=== PATIENT | male | born 1975 | race Caucasian/White ===

== ENCOUNTER 2022-11-26 15:33 | Emergency (ER) | payer OTHER ==
--- OUTSIDE RECORDS SUMMARY | 2022-11-26 15:43 | XMS REPORT | Continuity of Care Document ---
:1975 Author Organization Formerly [facility] Address [address] [place] [id number] Care Team Providers Name Role Phone PCP, PATIENT DOES NOT HAVE A Primary Care Physician Unavaila ble AMBREEN_BRYNA Attending Clinician Unavailable Obgerber_genny Attending Clinician Unavailable IHDE_G Attending Clinician Unavailable GANESH Attending Clinician Unavailable EDU JOHNSON Attending Clinician Unavailable AMBREEN_FARHANA Admitting Clinician Unavailable Obdalyunwanda Admitting Clinician Unavailable IHDE_G Admitting Clinician Unavailable GANESH Admitting Clinician Unavailable EDU JOHNSON Admitting Clinician Unavailable Payers Payer Name Policy Type Policy Number Effective Date Expiration Date S ource Problems Condition Condition Condition Status Onset Resolution Last Treating Co mments Source Name Details Category Date Date Treatment Clinician Date Tobacco Tobacco Problem Active [place] user User 1-25 da 00:00: [facility] Allergies, Adverse Reactions, Alerts Allergy Allergy Status Severity Reaction(s) Onset Inactive Treating Comm ents Source Name Type Date Date Clinician [place] DRUG Active Anaphylaxis Uni vers IN INGREDI 11-01 ity of 00:00: [address] [place] P[place] Allergy Active Moderate [place] to da substanc [facility] NO KNOWN Drug Active Univers ALLERGIE Class ity of [facility] Social History Smoking Status Start Date Stop Date Source Heavy Tobacco Smoker [place] [facility] Medications Ordered Filled Start Stop Current Ordering Indication Dosage Frequency Signature Comments Components Source Medication Medication Date Date Medication? Clinician (SIG) Name Name albuterol albuterol No 2puff(s Q4H albuterol [place] sulfate HFA sulfate HFA ) sulfate da 90 90 HFA 90 [facility] mcg/actuati mcg/actuati mcg/actuat al on aerosol on aerosol ion Hea lth inhaler inhaler aerosol Outrea c Inhale 2 Inhale 2 inhaler h puffs every puffs every Inhale 2 Program 4 hours by 4 hours by puffs inhalation inhalation every 4 route as route as hours by needed. needed. inhalation route as needed. escitalopra escitalopra No 1 Q1D escitalopr [place] m 10 mg m 10 mg am 10 mg da tablet Take tablet Take tablet [facility] 1 tablet 1 tablet Take 1 al every day every day tablet Hea lth by oral by oral every day Outr eac route for route for by oral h 30 days. 30 days. route for Pr ogram 30 days. Spiriva Spiriva No 2puff(s Q1D Spiriva [place] Respimat Respimat ) Respimat da 2.5 2.5 2.5 [facility] mcg/actuati mcg/actuati mcg/actuat al on solution on solution ion H ealth for for solution Outreac inhalation inhalation for h Inhale 2 Inhale 2 inhalation P rogram puffs every puffs every Inhale 2 day by day by puffs inhalation inhalation every day route for route for by 30 days. 30 days. inhalation route for 30 days. Vital Signs Vital Name Observation Time Observation Value Comments Source BP Diastolic 2020-08-15 00:00:00 90 mm[Hg] [facility] Height 2020-08-15 00:00:00 70 [in_i] [facility] BMI (Body Mass 2020-08-15 00:00:00 21.5 kg/m2 Sohail pabon [facility] BP Systolic 2020-08-15 00:00:00 125 mm[Hg] [facility] Body Weight 2020-08-15 00:00:00 2400 [oz_av] [facility] Procedures Procedure Date / Time Performed Performing Clinician Sourc e CHEST X-RAY 2020-08-15 00:00:00 [facility] Vasectomy [facility] Orthopedic Surgery [facility] Plan of Care Planned Activity Planned Date Details Comments Source Diagnostic Test 2020-08-15 hepatitis panel [place] Pending 00:00:00 (A+B+C), acute, serum [facility] [code = hepatitis Outreach P rogram panel (A+B+C), acute, serum] Diagnostic Test 2020-08-15 hepatitis B surface [place] Pending 00:00:00 Ab, qualitative, serum [facility] [code = hepatitis B Outreach Program surface Ab, qualitative, serum] Diagnostic Test 2020-08-15 HIV 1+2 AB + HIV 1 p24 [place] Pending 00:00:00 Ag, qualitative [facility] immunoassay, serum [facility] [code = HIV 1+2 AB + HIV 1 p24 Ag, qualitative immunoassay, serum] Diagnostic Test 2020-08-15 RPR (rapid plasma [place] Pending 00:00:00 reagin), serum [code = [facility] RPR (rapid plasma Outreach P rogram reagin), serum] Diagnostic Test 2020-08-15 CT + NG + TV, DNA, [place] [employer] Pending 00:00:00 urine/swab [code = CT [facility] + NG + TV, DNA, Outreach Pro gram urine/swab] Diagnostic Test 2020-08-15 CMP, serum or plasma Barnes jameel Pending 00:00:00 [code = CMP, serum or [facility] plasma] Outreach Progra m Diagnostic Test 2020-08-15 lipid panel, serum [place] [employer] Pending 00:00:00 [code = lipid panel, [facility] serum] Outreach Progra m Diagnostic Test 2020-08-15 CBC w/ auto diff [code [place] Pending 00:00:00 = CBC w/ auto diff] [facility] Outreach Progra m Diagnostic Test 2020-08-15 TSH + free T4, serum Barnes jameel Pending 00:00:00 [code = TSH + free T4, [facility] serum] Outreach Progra m Diagnostic Test 2020-08-15 HbA1c (hemoglobin [place] Pending 00:00:00 A1c), blood [code = [facility] HbA1c (hemoglobin Outreach P rogram A1c), blood] Diagnostic Test 2020-08-15 vitamin D, 25-hydroxy, [place] Pending 00:00:00 total, serum [code = [facility] vitamin D, 25-hydroxy, [facility] total, serum] Diagnostic Test 2020-08-15 rf (rheumatoid [place] Pending 00:00:00 factor), serum [code = [facility] rf (rheumatoid Outreach Prog wes factor), serum] Diagnostic Test 2020-08-15 JOSE CARLOS (antinuclear [place] Pending 00:00:00 antibodies) screen, [facility] serum [code = JOSE CARLOS Outreach P rogram (antinuclear antibodies) screen, serum] Diagnostic Test 2020-08-15 erythrocyte [place] Pending 00:00:00 sedimentation rate by [facility] westergren method Outreach P rogram [code = erythrocyte sedimentation rate by westergren method] Diagnostic Test 2020-08-15 uric acid, serum or [place] Pending 00:00:00 plasma [code = uric [facility] acid, serum or plasma] [facility] Diagnostic Test 2020-08-15 microalbumin/creatinin [place] Pending 00:00:00 e, mass ratio, urine [facility] [code = Outreach Progra m microalbumin/creatinin e, mass ratio, urine] Encounters Start End Encounter Admission Attending Care Care Encounter Source Date/Time Date/Time Type Type Clinicians Facility Department ID 2022-11-15 2022-11-15 Outpatient AMBREEN_NEGRITA [facility] [id number] [place] 00:00:00 00:00:00 SOFÍA [id number] da [facility] 2020-08-29 2020-08-29 Outpatient Obisesan_ad [facility] [id number] [place] 11:42:00 11:42:00 ekunbi [id number] da [facility] 2020-08-19 2020-08-19 Outpatient IHDE_G MMG MMG [id number] [place] 12:41:00 12:41:00 [id number] [facility] 2020-08-15 2020-08-15 Outpatient SHIMEK_REGULO [facility] [id number] [place] 06:15:00 06:15:00 _ANN [id number] da [facility] 2020-08-15 2020-08-15 Adekunwanda [facility] [place] - [id number] [place] 00:00:00 00:00:00 Trever Morales da SENIOR 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 Program 2020-08-12 2020-08-12 Outpatient KEMAR_REGULO ESQUIVEL [facility] 110 [id number] [place] 07:10:00 07:10:00 _ANN [id number] [facility] 2020-08-09 2020-08-09 Outpatient SHIMEK_REGULO ESQUIVEL [facility] 110 [id number] [place] 01:06:00 01:06:00 _ANN [id number] [facility] 2020-04-12 2020-04-12 Outpatient SHIMEK_REGULO ESQUIVEL [facility] 110 [id number] [place] 10:43:00 10:43:00 _ANN [id number] da [facility] 2019-11-02 2019-11-03 Emergency X ALEX, [facility] ERT [id number] Univers 22:00:50 00:22:00 [facility] 2017-04-05 2017-04-05 [facility] [id number] [place] 12:35:59 12:35:59 [facility] Office 2017-01-10 2017-04-05 Outpatient [facility] [id number] [address] [place] [address] 00:00:00 00:00:00 [facility] Office Results This patient has no known results.
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
[2022-11-26 18:55] VITALS: BP 129/88; TEMP 97.7; O2SAT 100
== END 2022-11-26 18:43 | disposition left against medical advice (07) ==
LOC: ER 15:33
DX: M54.2 Cervicalgia (principal); M25.511 Pain in right shoulder; F17.210 Nicotine dependence, cigarettes, uncomplicated; Z88.0 Allergy status to penicillin
CPT/HCPCS: 99282

== ENCOUNTER 2023-03-15 12:39 | Emergency (ER) | payer OTHER ==
--- OUTSIDE RECORDS SUMMARY | 2023-03-15 13:37 | XMS REPORT | Continuity of Care Document ---
:1975 Author Organization [facility] t Address [address] [place] [address] [place] [id number] Care Team Providers Name Role Phone PCP, PATIENT DOES NOT HAVE A Primary Care Physician UnavailJENNIFER Roberts Attending Clinician Unavailable L_Max Attending Clinician Unavailable PAT NICHOLE Attending Clinician Unavailable Pat Nichole MD Attending Clinician VICKY Attending Clinician Unavailable Apurva Attending Clinician Unavailable MAGDI_Martina Attending Clinician Unavailable GANESH Attending Clinician Unavailable EDU JOHNSON Attending Clinician Unavailable Jocy Admitting Clinician Unavailable PAT NICHOLE Admitting Clinician Unavailable VICKY Admitting Clinician Unavailable Apurva Admitting Clinician Unavailable SCARLETT Admitting Clinician Unavailable GANESH Admitting Clinician Unavailable EDU JOHNSON Admitting Clinician Unavailable Payers Payer Name Policy Type Policy Number Effective Date Expiration Date S roger [employer]ET[employer] 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 9 [id number] 2022 2: 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 00:00:00 ON AETNA (HMO) [id number] 2022 00:00:00 [employer] COMMERCIAL [id number] 2022 OUT OF NETWORK 00:00:00 Problems Condition Condition Condition Status Onset Resolution Last Treating Co mments Source Name Details Category Date Date Treatment Clinician Date Tobacco Tobacco Problem Active [place] user User 1-25 da [facility] Allergies, Adverse Reactions, Alerts Allergy Allergy Status Severity Reaction(s) Onset Inactive Treating Comm ents Source Name Type Date Date Clinician Penicill Propensi Active Anaphylaxis 2019- U nivers in ty to -13 ity of adverse 00:00: [place] reaction 00 Medical s Branch PENICILL DRUG Active Anaphylaxis Uni vers IN INGREDI 11-01 ity of 00:00: [place] 00 Medical Branch PENICILL Allergy Active Moderate [place] to da substanc [facility] NO KNOWN Drug Active Univers ALLERGIE Class [facility] Social History Social Habit Start Date Stop Date Quantity Comments Source Exposure to 2022-11-23 2022-12-03 Not sure [facility] SARS-CoV-2 (event) 00:00:00 23:12:00 Medica Branch Sex Ass[birth year] [facility] 00:00:00 00:00:00 Medical Branch Smoking Status Start Date Stop Date Source Heavy Tobacco Smoker [facility] Tobacco smoking consumption [facility] Medical unknown Branch Medications Ordered Filled Start Stop Current Ordering Indication Dosage Frequency Signature Comments Components Source Medication Medication Date Date Medication? Clinician (SIG) Name Name ketorolac 2022- No 60mg 60 mg, Unive rs (TORADOL) 12-04 Intramuscu ity of injection 05:15: 04:36 [place] 60 mg 00 :00 NOW, 1 Medical dose, On Branch 12/04/22 at 0015, YOLY gabapentin 2022- No 300mg 300 mg, Un chris (NEURONTIN) 12-04 Oral, ity of capsule 300 04:30: 04:36 ONCE[place] 1 [place] mg [place] :00 dose, On Medical Mon Branch 12/03/22 at 2330, YOLY dexamethaso 2022- No 10mg 10 mg, Uni vers ne sod phos 12-04 Intramuscu i ty of PF 04:30: 04:36 lar, ONCE, [place] injection 00 :00 1 dose, On Medi kirsty 10 mg [facility] Branch 12/03/22 at 2330, 1 mL ketorolac Yes [id number] 10mg Take 1 Un chris 10 mg 5-15 tablet by ity of tablet 00:00: mouth [place] 00 every 6 Medical (six) Branch hours as needed for Pain (scale 4-6) or Pain (scale 7-10). acetaminoph Yes [id number] 650mg Take 1 Univers en (TYLENOL 5-15 tablet by ity of ARTHRITIS 00:00: mouth [place] PAIN) 650 00 every 8 Medical mg CR (eight) Branch tablet hours as needed for Pain. gabapentin Yes [id number] 100mg Take 1 Univers (NEURONTIN) 5-15 capsule by it y of 100 mg 00:00: mouth in [place] capsule 00 the Medical morning Branch and 1 capsule at noon and 1 capsule in the evening. predniSONE Yes [id number] Take 2 U nivers 20 mg 5-15 tablets PO ity of tablet 00:00: daily [place] 00 Medical Branch ondansetron Yes [id number] 4mg Take 1 Univers 4 mg 4-13 tablet by ity of disintegrat 00:00: mouth [place] ing tablet 00 every 8 Medica l (eight) Branch hours as needed for Nausea and Vomiting (N/V). albuterol albuterol No 2puff(s Q4H albuterol [place] [...] Name Observation Time Observation Value Comments Source Systolic blood 2022-12-04 04:14:00 141 mm[Hg] Univer [facility] Diastolic blood 2022-12-04 04:14:00 92 mm[Hg] Unive rsity [facility] Heart rate 2022-12-04 04:14:00 96 /min [facility] Body temperature 2022-12-04 04:14:00 37 Luci [facility] Respiratory rate 2022-12-04 04:14:00 18 /min [facility] Body height 2022-12-04 04:14:00 177.8 cm [facility] Body weight 2022-12-04 04:14:00 74.844 kg [facility] BMI 2022-12-04 04:14:00 23.68 kg/m2 [facility] Oxygen saturation in 2022-12-04 04:14:00 100 /min [facility] Arterial blood by [facility] Pulse oximetry Branch BP Diastolic 2020-08-15 00:00:00 90 mm[Hg] [place] [facility] Height 2020-08-15 00:00:00 70 [in_i] [place] [facility] BMI (Body Mass 2020-08-15 00:00:00 21.5 kg/m2 [facility] shipfitter helper Index) [facility] BP Systolic 2020-08-15 00:00:00 125 mm[Hg] [place] [facility] Body Weight 2020-08-15 00:00:00 2400 [oz_av] [place] [facility] Procedures Procedure Date / Time Performed Performing Clinician [facility] e NOTICE OF PRIVACY 2022-12-04 04:04:11 Doctor Unassigned, No Univ [facility] PRACTICES Name Medical Branch CONSENT/REFUSAL FOR 2022-12-04 04:02:48 Doctor Unassigned, No Un [facility] DIAGNOSIS AND Name Medical Branch TREATMENT CHEST X-RAY 2020-08-15 00:00:00 [facility] Vasectomy Terry [facility] Orthopedic Surgery Terry [facility] Plan of Care Planned Activity Planned Date Details Comments Source Diagnostic Test 2020-08-15 hepatitis panel [place] Pending 00:00:00 (A+B+C), acute, serum [facility] [code = hepatitis Outreach P rogram panel (A+B+C), acute, serum] Diagnostic Test 2020-08-15 hepatitis B surface [place] Pending 00:00:00 Ab, qualitative, serum [facility] [code = hepatitis B Outreach Program surface Ab, qualitative, serum] Diagnostic Test 2020-08-15 HIV 1+2 AB + HIV 1 p24 Ma taglillianaa Pending 00:00:00 Ag, qualitative [facility] immunoassay, serum Outreach Program [code = HIV 1+2 AB + HIV 1 p24 Ag, qualitative immunoassay, serum] Diagnostic Test 2020-08-15 RPR (rapid plasma [place] Pending 00:00:00 reagin), serum [code = [facility] RPR (rapid plasma Outreach P rogram reagin), serum] Diagnostic Test 2020-08-15 CT + NG + TV, DNA, [place] shipfitter helper Pending 00:00:00 urine/swab [code = CT [facility] Health + NG + TV, DNA, Outreach Pro gram urine/swab] Diagnostic Test 2020-08-15 CMP, serum or plasma Barnes jameel Pending 00:00:00 [code = C[facility], [facility] plasma] Outreach Progra m Diagnostic Test 2020-08-15 lipid panel, serum [place] shipfitter helper Pending 00:00:00 [code = lipid panel, [facility] serum] Outreach Progra m Diagnostic Test 2020-08-15 CBC w/ auto diff [code [place] Pending 00:00:00 = CBC w/ auto diff] [facility] Outreach Progra m Diagnostic Test 2020-08-15 TSH + free T4, serum [place] jameel Pending 00:00:00 [code = TSH + free T4, [facility] serum] Outreach Progra m Diagnostic Test 2020-08-15 HbA1c (hemoglobin [place] Pending 00:00:00 A1c), blood [code = [facility] HbA1c (hemoglobin Outreach P rogram A1c), blood] Diagnostic Test 2020-08-15 vitamin D, 25-hydroxy, [place] Pending 00:00:00 total, serum [code = [facility] vitamin D, 25-hydroxy, Outre [facility] total, serum] Diagnostic Test 2020-08-15 rf (rheumatoid Terry Pending 00:00:00 factor), serum [code = [facility] rf (rheumatoid Outreach Prog wes factor), serum] Diagnostic Test 2020-08-15 JOSE CARLOS (antinuclear [place] Pending 00:00:00 antibodies) screen, [facility] serum [code = JOSE CARLOS Outreach P rogram (antinuclear antibodies) screen, serum] Diagnostic Test 2020-08-15 erythrocyte Terry Pending 00:00:00 sedimentation rate by [facility] westergren method Outreach P rogram [code = erythrocyte sedimentation rate by westergren method] Diagnostic Test 2020-08-15 uric acid, serum or [place] Pending 00:00:00 plasma [code = uric [facility] acid, serum or plasma] [facility] Diagnostic Test 2020-08-15 microalbumin/creatinin [place] Pending 00:00:00 e, mass ratio, urine [facility] [code = Outreach Progra m microalbumin/creatinin e, mass ratio, urine] Encounters Start End Encounter Admission Attending Care Care Encounter Source Date/Time Date/Time Type Type Clinicians Facility Department ID 2023-01-01 2023-01-01 Outpatient KAMALA CARUSO [id number] [place] 14:30:00 14:30:00 JENNIFER mosquera 2022-12-11 2022-12-11 Outpatient L_Pena [facility] [id number] [place] 00:00:00 00:00:00 0523 [facility] 2022-12-03 2022-12-04 Emergency X DIONISIO, [facility] ERT [id number] Univers 23:17:00 01:01:00 PAT [facility] 2022-12-03 2022-12-04 Emergency Dionisio, [facility] [id number] Univers 23:17:00 01:01:00 Pat HALE [id number] i lidya [facility] [id number] [facility] [id number] [facility] 084 Branch 2022-11-15 2022-11-15 Outpatient AMBREEN_NEGRITA MEHOP MEHOP [id number] [place] 00:00:00 00:00:00 SOFÍA [id number] da [facility] 2020-08-29 2020-08-29 Outpatient Obisesan_ad MEHOP MEHOP 110 [id number] [place] 11:42:00 11:42:00 ernie [id number] [facility] 2020-08-19 2020-08-19 Outpatient IHDE_G MMG MMG [id number] [place] 12:41:00 12:41:00 [id number] [facility] 2020-08-15 2020-08-15 Outpatient SHIMEK_REGULO MEHOP MEHOP 110 [id number] [place] 06:15:00 06:15:00 _ANN [id number] da [facility] 2020-08-15 2020-08-15 Adekunwanda [facility] [place] - [id number] [place] 00:00:00 00:00:00 Trever Morales da 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 Program 2020-08-12 2020-08-12 Outpatient SHIMEK_REGULO MEHOP MEHOP [id number] [place] 07:10:00 07:10:00 _ANN [id number] [facility] 2020-08-09 2020-08-09 Outpatient SHIMEK_REGULO MEHOP MEHOP 110 [id number] [place] 01:06:00 01:06:00 _ANN [id number] [facility] 2020-04-12 2020-04-12 Outpatient SHIMEK_REGULO MEHOP MEHOP 110 [id number] [place] 10:43:00 10:43:00 _ANN [id number] da [facility] 2019-11-02 2019-11-03 Emergency X ALEX, [facility] ERT [id number] [facility] 22:00:50 00:22:00 EDU [facility] 2017-04-05 2017-04-05 Outpatient [facility] [id number] [place] 12:35:59 12:35:59 [facility] 2017-01-10 2017-04-05 Outpatient [facility] [id number] [address] [place] [address] 00:00:00 00:00:00 [facility] Results This patient has no known results.
--- NOTE | 2023-03-15 14:49 | EDPHYS ---
Physician Documentation [facility] Name: Prieto Baugh Age: 48 yrs Sex: Male : 1975 Arrival Date: 03/15/2023 Time: 12:39 Bed 12 Private MD: ED Physician Scotty Martínez HPI: 03/15 14:46 This 48 yrs old Male presents to ER via Ambulatory with complaints of Hernia. rn 14:46 The patient presents with abdominal pain. rn 14:46 . rn Historical: - Allergies: 12:45 PENICILLINS; hb - Home Meds: 12:45 None [Active]; hb - PMHx: 12:45 Hypertensio; Hepatitis C; hb - PSHx: 12:45 Arm - Left; hb - Immunization history:: Adult Immunizations up to date. - Social history:: Smoking status: Patient reports the use of cigarette tobacco products, smokes one-half pack cigarettes per day. Vital Signs: 12:44 BP 134 / 93; Pulse 97; Resp 18; Temp 98.6; Pulse Ox 100% ; Weight 70.31 kg; Height 5 hb ft. 10 in. ; Pain 7/10; 12:44 Body Mass Index 22.24 (70.31 kg, 177.8 cm) hb 12:44 Pain Scale: Adult hb MDM: 12:47 Patient medically screened. rn 13:29 ED course: Pt went upstairs "to get something", has not returned. . rn 14:46 Differential diagnosis: non-specific abd pain, Ureterolithiasis, urinary tract rn infection, hernia, hernia with complication. Data reviewed: vital signs, nurses notes. ED course: Pt left upstairs prior to physical examination, has been called on cell phone, told us he would return, has not returned, will discharge as has been gone for more than 2 hours now. . 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 rn rn 15: 14:46 Onset: The symptoms/episode began/occurred 1 year(s) ago, rn rn 15: 14:46 Pt reports left inguinal pain for atleast 1 year, worse recently. NO fever. No rn vomiting. . rn 15: 14:48 Home rn rn 15: 14:48 an ongoing problem rn rn 15: 14:48 are unchanged rn rn 15: 14:48 Stable rn rn 15: 14:48 Inguinal hernia, unspecified rn rn
--- NOTE | 2023-03-15 14:49 | ER ---
Nurse's Notes [facility] Name: Prieto Baugh Age: 48 yrs Sex: Male : 1975 Arrival Date: 03/15/2023 Time: 12:39 Bed 12 Private MD: Diagnosis: Inguinal hernia Presentation: 03/15 12:44 Chief complaint: Left groin hernia x 1 year, getting bigger and painful over last 3 hb days. Coronavirus screen: At this time, the client does not indicate any symptoms associated with coronavirus-19. Ebola Screen: No symptoms or risks identified at this time. Initial Sepsis Screen: Does the patient meet any 2 criteria? No. Patient's initial sepsis screen is negative. Does the patient have a suspected source of infection? No. Patient's initial sepsis screen is negative. Risk Assessment: Do you want to hurt yourself or someone else? Patient reports no desire to harm self or others. Onset of symptoms was March 13, 2023. 12:44 Method Of Arrival: Ambulatory hb 12:44 Acuity: TIFFANIE 3 hb Historical: - Allergies: 12:45 PENICILLINS; hb - Home Meds: 12:45 None [Active]; hb - PMHx: 12:45 Hypertensio; Hepatitis C; hb - PSHx: 12:45 Arm - Left; hb - Immunization history:: Adult Immunizations up to date. - Social history:: Smoking status: Patient reports the use of cigarette tobacco products, smokes one-half pack cigarettes per day. Vital Signs: 12:44 BP 134 / 93; Pulse 97; Resp 18; Temp 98.6; Pulse Ox 100% ; Weight 70.31 kg; Height 5 hb ft. 10 in. ; Pain 7/10; 12:44 Body Mass Index 22.24 (70.31 kg, 177.8 cm) hb 12:44 Pain Scale: Adult hb ED Course: 12:39 Patient arrived in ED. rg4 12:45 Triage completed. hb 12:46 Arm band placed on. hb 12:47 Scotty Martínez MD is Attending Physician. rn 14:47 Praveen Shin MD is Referral Physician. rn 15:28 Praveen Shin MD is Referral Physician. rn Administered Medications: No medications were administered Outcome: 14:48 Discharge ordered by MD. rn 14:50 Patient left the ED. hb 15:28 Patient left the ED. rn Signatures: Scotty Martínez MD MD rn Baxter, Heather, RN RN hb Garcia, Rubi rg4 Corrections: (The following items were deleted from the chart) 12:46 12:45 PMHx: None; hb hb 15: 14:46 Family history: not pertinent, rn rn 15: 14:46 Hospitalizations: No recent hospitalization is reported. rn rn
[2023-03-15 14:56] VITALS: BP 134/93; TEMP 98.6; O2SAT 100
== END 2023-03-15 15:28 | disposition left against medical advice (07) ==
LOC: ER 12:39
DX: Z53.21 Procedure and treatment not carried out due to patient leaving prior to being seen by health care provider (principal)
CPT/HCPCS: 99281

== ENCOUNTER 2023-03-17 21:47 | Emergency (ER) | payer OTHER ==
--- OUTSIDE RECORDS SUMMARY | 2023-03-17 21:50 | XMS REPORT | Continuity of Care Document ---
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 [id number] 2022 OUT OF NETWORK 00:00:00 Problems Condition [...] Active Univers ALLERGIE Class [facility] [place] [facility] Social History Social Habit Start Date Stop Date Quantity Comments Source Exposure to 2022-11-23 2022-12-03 Not sure [facility] SARS-CoV-2 (event) 00:00:00 23:12:00 Medica Branch Sex Ass[birth year] At [birth year] [facility] 00:00:00 00:00:00 Medical Branch Smoking Status Start Date Stop Date Source Tobacco smoking consumption [facility] Branch Heavy Tobacco Smoker [place] [facility] Medications Ordered Filled Start Stop Current Ordering Indication Dosage Frequency Signature Comments Components Source Medication Medication Date Date Medication? Clinician (SIG) Name Name ketorolac 2022- No 60mg 60 mg, Unive rs (TORADOL) 12-04 Intramuscu ity of injection 05:15: 04:36 [place] 60 [place] 00 :00 NOW, 1 Medical dose, On Branch Tu 12/04/22 at 0015, YOLY gabapentin 2022- No [...] 1 dose, On Medi kirsty 10 mg [facility] 12/03/22 at 2330, 1 mL ketorolac Yes [id number] 10mg Take 1 Un chris 10 mg 5-15 tablet by ity of tablet 00:00: mouth [place] 00 every 6 Medical (six) Branch hours as needed for Pain (scale 4-6) or Pain (scale 7-10). acetaminoph Yes [id number] 650mg Take 1 Univers en (TYLENOL 5-15 tablet by ity of ARTHRITIS 00:00: mouth [place] PAIN) 650 00 every 8 Medical mg CR (eight) Branch tablet hours as needed for Pain. gabapentin Yes [id number] 100mg Take 1 Univers (NEURONTIN) 5-15 capsule by it y of 100 mg 00:00: mouth in [place] capsule 00 the Medical morning Branch and 1 capsule at noon and 1 capsule in the evening. predniSONE Yes [id number] Take 2 U nivers 20 mg 5-15 tablets PO ity of tablet 00:00: daily [place] 00 Medical Branch ondansetron Yes [id number] 4mg Take 1 Univers 4 mg 4-13 [...] 2022-12-04 04:14:00 141 mm[Hg] [facility]iver [facility] Diastolic blood 2022-12-04 04:14:00 92 mm[Hg] Unive rsity [facility] Heart rate 2022-12-04 04:14:00 96 /min [facility] Body temperature 2022-12-04 04:14:00 37 Luci [facility] Respiratory rate 2022-12-04 04:14:00 18 /min [facility] Body height 2022-12-04 04:14:00 177.8 cm [facility] Body weight 2022-12-04 04:14:00 74.844 kg [facility] BMI 2022-12-04 04:14:00 23.68 kg/m2 [facility] Oxygen saturation in 2022-12-04 04:14:00 100 /min [facility] Arterial blood by [facility] Pulse oximetry Branch BP Diastolic 2020-08-15 00:00:00 90 mm[Hg] [place] [facility] Height 2020-08-15 00:00:00 70 [in_i] [place] [facility] BMI (Body Mass 2020-08-15 00:00:00 21.5 kg/m2 [facility] approver Index) [facility] BP Systolic 2020-08-15 00:00:00 125 mm[Hg] [place] [facility] Body Weight 2020-08-15 00:00:00 2400 [oz_av] [place] [facility] Procedures Procedure Date / Time Performed Performing Clinician [facility] e NOTICE OF PRIVACY 2022-12-04 04:04:11 Doctor Unassigned, No Univ [facility] PRACTICES Name Medical Branch CONSENT/REFUSAL FOR 2022-12-04 04:02:48 Doctor Unassigned, No Un [facility] DIAGNOSIS AND Name Medical Branch TREATMENT CHEST X-RAY 2020-08-15 00:00:00 [place] [facility] Vasectomy [place] [facility] Orthopedic Surgery [place] [facility] Plan of Care Planned Activity Planned Date Details Comments Source Diagnostic Test 2020-08-15 hepatitis panel [place] Pending 00:00:00 (A+B+C), acute, serum [facility] [code = hepatitis Outreach P rogram panel (A+B+C), acute, serum] Diagnostic Test 2020-08-15 hepatitis B surface [place] Pending 00:00:00 Ab, qualitative, serum [facility] [code = hepatitis B Outreach Program surface Ab, qualitative, serum] Diagnostic Test 2020-08-15 HIV 1+2 AB + HIV 1 p24 [place] taglillianaa Pending 00:00:00 Ag, qualitative [facility] immunoassay, serum Outreach Program [code = HIV 1+2 AB + HIV 1 p24 Ag, qualitative immunoassay, serum] Diagnostic Test 2020-08-15 RPR (rapid plasma [place] Pending 00:00:00 reagin), serum [code = [facility] RPR (rapid plasma Outreach P rogram reagin), serum] Diagnostic Test 2020-08-15 CT + NG + TV, DNA, [place] approver Pending 00:00:00 urine/swab [code = CT [facility] Health + NG + TV, DNA, Outreach Pro gram urine/swab] Diagnostic Test 2020-08-15 CMP, serum or plasma [place] jameel Pending 00:00:00 [code = CMP, serum or [facility] plasma] Outreach Progra m Diagnostic Test 2020-08-15 lipid panel, serum [place] approver Pending 00:00:00 [code = lipid panel, [facility] serum] Outreach Progra m Diagnostic Test 2020-08-15 CBC w/ auto diff [code [place] Pending 00:00:00 = CBC w/ auto diff] [facility] Outreach Progra m Diagnostic Test 2020-08-15 TSH + free T4, serum [place] jameel Pending 00:00:00 [code = TSH + free T4, [facility] serum] Outreach Progra m Diagnostic Test 2020-08-15 HbA1c (hemoglobin [place] Pending 00:00:00 A1c), blood [code = [facility] HbA1c (hemoglobin Outreach P rogram A1c), blood] Diagnostic Test 2020-08-15 vitamin D, 25-hydroxy, [place] Pending 00:00:00 total, serum [code = [facility] vitamin D, 25-hydroxy, Outre [facility] total, serum] Diagnostic Test 2020-08-15 rf (rheumatoid [place] Pending 00:00:00 factor), serum [code = [facility] rf (rheumatoid Outreach Prog wes factor), serum] Diagnostic Test 2020-08-15 JOSE CARLOS (antinuclear [place] Pending 00:00:00 antibodies) screen, [facility] serum [code = JOSE CARLOS Outreach P rogram (antinuclear antibodies) screen, serum] Diagnostic Test 2020-08-15 erythrocyte [place] Pending 00:00:00 sedimentation rate by [facility] westergren method Outreach P rogram [code = erythrocyte sedimentation rate by westergren method] Diagnostic Test 2020-08-15 uric acid, serum or [place] Pending 00:00:00 plasma [code = uric [facility] acid, serum or plasma] [facility] Diagnostic Test 2020-08-15 microalbumin/creatinin [place] Pending 00:00:00 e, mass ratio, urine [facility] [code = Outreach Progra m microalbumin/creatinin e, mass ratio, urine] Encounters Start End Encounter Admission Attending Care Care Encounter Source Date/Time Date/Time Type Type Clinicians Facility Department ID 2023-01-01 2023-01-01 Outpatient KAMALA CARUSO [id number] [place] 14:30:00 14:30:00 JENNIFER mosquera 2022-12-11 2022-12-11 Outpatient L_Pena [facility] [id number] [place] 00:00:00 00:00:00 0523 [facility] 2022-12-03 2022-12-04 Emergency X DIONISIO, RUST ERT [id number] Univers 23:17:00 01:01:00 PAT medina [facility] 2022-12-03 2022-12-04 Emergency Dionisio, RUST [id number] Univers 23:17:00 01:01:00 Pat HALE [id number] i lidya [facility] [id number] [facility] [id number] [facility] 084 Branch 2022-11-15 2022-11-15 Outpatient AMBREEN_NEGRITA MEHOP MEHOP [id number] [place] 00:00:00 00:00:00 SFOÍA [id number] [facility] 2020-08-29 2020-08-29 Outpatient Obisesan_ad MEHOP MEHOP 110 [id number] [place] 11:42:00 11:42:00 ernie 67520 [facility] 2020-08-19 2020-08-19 Outpatient IHDE_G MMG MMG [id number] [place] 12:41:00 12:41:00 0129 [facility] 2020-08-15 2020-08-15 Outpatient SHIMEK_REGULO MEHOP MEHOP 110 [id number] [place] 06:15:00 06:15:00 _ANN [id number] [facility] 2020-08-15 2020-08-15 Adekunwanda [facility] [place] - [id number] [place] 00:00:00 00:00:00 Trever Morales da 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 Program 2020-08-12 2020-08-12 Outpatient SHIMEK_REGULO MEHOP MEHOP 110 [id number] [place] 07:10:00 07:10:00 _ANN [id number] [facility] 2020-08-09 2020-08-09 Outpatient SHIMEK_REGULO MEHOP MEHOP 110 [id number] [place] 01:06:00 01:06:00 _ANN [id number] [facility] 2020-04-12 2020-04-12 Outpatient SHIMEK_REGULO MEHOP MEHOP 110 [id number] [place] 10:43:00 10:43:00 _ANN [id number] [facility] 2019-11-02 2019-11-03 Emergency X ALEX, RUST ERT [id number] [facility] [place] 22:00:50 00:22:00 EDU medina [facility] 2017-04-05 2017-04-05 Outpatient [facility] [id number] [place] 12:35:59 12:35:59 [facility] 2017-01-10 2017-04-05 Outpatient [facility] [id number] [address] [place] [address] 00:00:00 00:00:00 [facility] Results This patient has no known results.
--- NOTE | 2023-03-17 22:13 | EDPHYS ---
Physician Documentation [facility] Name: Prieto Baugh Age: 48 yrs Sex: Male : 1975 Arrival Date: 03/17/2023 Time: 21:47 Bed 8 Private MD: ED Physician David Agosto HPI: 03/17 22:12 This 48 yrs old Male presents to ER via Ambulatory with complaints of Groin Pain. ms3 22:12 48-year-old male with past medical history of hepatitis C, hypertension presents for ms3 left-sided groin pain/hernia. Patient states he has been unable to have sex and this has been ongoing for 5 months. Patient denies pain at this time. Patient states the hernia is reduced at this time. Patient denies nausea, vomiting, abdominal pain. Historical: - Allergies: 21:58 PENICILLINS; ap3 - Home Meds: 21:58 None [Active]; ap3 - PMHx: 21:58 Hepatitis C; Hypertensive disorder; ap3 - PSHx: 21:58 Arm - Left; ap3 - Immunization history:: Client reports receiving the 2nd dose of the Covid vaccine. - Social history:: Smoking status: Patient reports the use of cigarette tobacco products, smokes one-half pack cigarettes per day. ROS: 22:12 Abdomen/GI: Positive for groin pain. ms3 22:12 Constitutional: Negative for fever, and chills. Neck: Negative for injury, pain, and ms3 swelling, Cardiovascular: Negative for chest pain, and palpitations. Respiratory: Negative for shortness of breath, cough, wheezing, and pleuritic chest pain. 22:12 All other systems are negative. ms3 Exam: 22:12 Constitutional: This is a well developed, well nourished patient who is awake, alert, ms3 and in no acute distress. Head/Face: Normocephalic, atraumatic. Neck: Trachea midline, no cervical lymphadenopathy. Supple, full range of motion without nuchal rigidity, or vertebral point tenderness. No Meningismus. Chest/axilla: Normal chest wall appearance and motion. Nontender with no deformity. Cardiovascular: Regular rate and rhythm with a normal S1 and S2. No gallops, murmurs, or rubs. Normal PMI, no JVD. No pulse deficits. Respiratory: Lungs have equal breath sounds bilaterally, clear to auscultation and percussion. No rales, rhonchi or wheezes noted. No increased work of breathing, no retractions or nasal flaring. 22:12 Skin: Warm, dry with normal turgor. Normal color with no rashes, no lesions, and no evidence of cellulitis. MS/ Extremity: Pulses equal, no cyanosis. Neurovascular intact. Full, normal range of motion. 22:12 Abdomen/GI: Inspection: abdomen appears normal, Bowel sounds: normal, Palpation: mild abdominal tenderness, in the left lower quadrant, Hernia: noted in the left inguinal area, incarceration, is not appreciated, tenderness, that is mild. Vital Signs: 21:56 BP 137 / 93; Pulse 99; Resp 17; Temp 99; Pulse Ox 100% ; Weight 70.31 kg; Pain 5/10; ap3 21:56 Pain Scale: Adult ap3 MDM: 22:12 Patient medically screened. ms3 22:12 Differential diagnosis: Ventral hernia, inguinal hernia. Data reviewed: vital signs, ms3 nurses notes, and as a result, I will discharge patient. Test considered but Not performed: CT: CT not ordered as patient without overlying erythema, hernia is reducible, no vomiting or other signs of obstruction. Historians other than the Patient:. Counseling: I had a detailed discussion with the patient and/or guardian regarding the historical points, exam findings, and any diagnostic results supporting the discharge/admit diagnosis, the need for outpatient follow up, a general surgeon, to return to the emergency department if symptoms worsen or persist or if there are any questions or concerns that arise at home. Special discussion: I discussed with the patient/guardian in detail that at this point there is no indication for admission to the hospital. It is understood, however, that if the symptoms persist or worsen the patient needs to return immediately for re-evaluation. ED course: Discussed physical exam findings with patient and his . Patient to follow-up with Dr. Shin in 2 to 3 days. Patient understands and agrees with plan. All questions were answered. Return precautions discussed include worsening symptoms, or any other concerns.. Administered Medications: No medications were administered Disposition Summary: 03/17/23 22:12 Discharge Ordered Location: Home ms3 Condition: Stable ms3 Diagnosis - Unilateral inguinal hernia, without obstruction or gangrene ms3 Followup: ms3 - With: Praveen Shin MD - When: 2 - 3 days - Reason: Recheck today's complaints Discharge Instructions: - Discharge Summary Sheet ms3 - Hernia, Adult ms3 Forms: - Medication Reconciliation Form ms3 - Thank You Letter ms3 - Antibiotic Education ms3 - Prescription Opioid Use ms3 - Patient Portal Instructions ms3 - Leadership Thank You Letter ms3 Signatures: Germaine Salcedo RN RN ap3 David Agosto DO DO ms3 Corrections: (The following items were deleted from the chart) 21:58 21:58 PMHx: Hypertensio; ap3 ap3 03/18 01:24 03/17 22:12 Constitutional: Negative for fever, and chills. Neck: Negative for injury, ms3 pain, and swelling, Cardiovascular: Negative for chest pain, and palpitations. Respiratory: Negative for shortness of breath, cough, wheezing, and pleuritic chest pain, ms3
--- NOTE | 2023-03-17 22:13 | ER ---
Nurse's Notes [facility] Name: Prieto Baugh Age: 48 yrs Sex: Male : 1975 Arrival Date: 03/17/2023 Time: 21:47 Bed 8 Private MD: Diagnosis: Unilateral inguinal hernia, without obstruction or gangrene Presentation: 03/17 21:56 Chief complaint: Patient states: he has a hernia near his groin that is causing him ap3 increased pain. patient states the hernia has been present for "a while" but has gotten larger and more painful over the last few days. Coronavirus screen: At this time, the client does not indicate any symptoms associated with coronavirus-19. Ebola Screen: No symptoms or risks identified at this time. Initial Sepsis Screen: Does the patient meet any 2 criteria? No. Patient's initial sepsis screen is negative. Does the patient have a suspected source of infection? No. Patient's initial sepsis screen is negative. Risk Assessment: Do you want to hurt yourself or someone else? Patient reports no desire to harm self or others. Onset of symptoms is unknown. 21:56 Method Of Arrival: Ambulatory ap3 21:56 Acuity: TIFFANIE 3 ap3 Triage Assessment: 21:58 General: Appears comfortable, Behavior is calm, cooperative, appropriate for age. Pain: ap3 Complains of pain in groin and left femoral area Pain currently is 5 out of 10 on a pain scale. at worst was 10 out of 10 on a pain scale. Pain began gradually. Neuro: Level of Consciousness is awake, alert, obeys commands, Oriented to person, place, time, situation. Cardiovascular: Patient's skin is warm and dry. Respiratory: Airway is patent Respiratory effort is even, unlabored, Respiratory pattern is regular, symmetrical. Historical: - Allergies: 21:58 PENICILLINS; ap3 - Home Meds: 21:58 None [Active]; ap3 - PMHx: 21:58 Hepatitis C; Hypertensive disorder; ap3 - PSHx: 21:58 Arm - Left; ap3 - Immunization history:: Client reports receiving the 2nd dose of the Covid vaccine. - Social history:: Smoking status: Patient reports the use of cigarette tobacco products, smokes one-half pack cigarettes per day. Screenin:59 [facility] ED Fall Risk Assessment (Adult) History of falling in the last 3 months, ap3 including since admission No falls in past 3 months (0 pts). Abuse screen: Denies threats or abuse. Nutritional screening: No deficits noted. Tuberculosis screening: No symptoms or risk factors identified. Assessment: 22:24 Reassessment: DC HOME AMBULATORY. bp Vital Signs: 21:56 BP 137 / 93; Pulse 99; Resp 17; Temp 99; Pulse Ox 100% ; Weight 70.31 kg; Pain 5/10; ap3 21:56 Pain Scale: Adult ap3 ED Course: 21:56 Patient arrived in ED. ap3 21:57 David Agosto DO is Attending Physician. ms3 21:58 Triage completed. ap3 21:59 Arm band placed on left wrist. ap3 22:12 Praveen Shin MD is Referral Physician. ms3 22:16 Cruzito Jeffrey, RN is Primary Nurse. bp 22:24 Patient has correct armband on for positive identification. Bed in low position. Call bp light in reach. Provided Education on: N/A. 22:24 No provider procedures requiring assistance completed. Patient did not have IV access bp during this emergency room visit. Administered Medications: No medications were administered Medication: 22:24 VIS not applicable for this client. bp Outcome: 22:12 Discharge ordered by . ms3 22:24 Discharged to home ambulatory. bp 22:24 Condition: stable 22:24 Discharge instructions given to patient, Instructed on discharge instructions, follow up and referral plans. Demonstrated understanding of instructions, follow-up care. 22:25 Patient left the ED. bp Signatures: Cruzito Jeffrey, RN RN bp Germaine aSlcedo RN RN ap3 David Agosto DO DO ms3 Corrections: (The following items were deleted from the chart) 21:58 21:58 PMHx: Hypertensio; ap3 ap3
[2023-03-17 23:36] VITALS: BP 137/93; TEMP 99; O2SAT 100
== END 2023-03-17 22:25 | disposition home or self-care (01) ==
LOC: ER 21:47
DX: K40.90 Unilateral inguinal hernia, without obstruction or gangrene, not specified as recurrent (principal); F17.210 Nicotine dependence, cigarettes, uncomplicated; Z88.0 Allergy status to penicillin
CPT/HCPCS: 99282

== ENCOUNTER 2023-04-25 05:37 | Emergency (ER) | payer OTHER ==
--- OUTSIDE RECORDS SUMMARY | 2023-04-25 05:40 | XMS REPORT | Continuity of Care Document ---
:1975 Author Organization [facility] t Address [address] [place] [address] [place] [id number] Care Team Providers Name Role Phone PCP, PATIENT DOES NOT HAVE A Primary Care Physician UnavailGAVIN Jansen Attending Clinician Unavailable BRAD ROMERO Attending Clinician Unavailable CHUCKY BROWNING Attending Clinician Unavailable JENNIFER CARUSO Attending Clinician Unavailable Jocy Attending Clinician Unavailable PAT NICHOLE Attending Clinician Unavailable Pat Nichole MD Attending Clinician VICKY Attending Clinician Unavailable Apurva Attending Clinician Unavailable IHDE_G Attending Clinician Unavailable GANESH Attending Clinician Unavailable EDU JOHNSON Attending Clinician Unavailable Jocy Admitting Clinician Unavailable PAT NICHOLE Admitting Clinician Unavailable VICKY Admitting Clinician Unavailable Apurva Admitting Clinician Unavailable MAGDI_G Admitting Clinician Unavailable GANESH Admitting Clinician Unavailable EDU JOHNSON Admitting Clinician Unavailable Payers Payer Name Policy Type Policy Number Effective Date Expiration Date S roger [employer]ET[employer] 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 9 [id number] 2022 2: 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 00:00:00 ON AETNA (O) [id number] 2022 00:00:00 [employer] COMMERCIAL [id number] 2022 OUT OF NETWORK 00:00:00 Problems Condition Condition Condition Status Onset Resolution Last Treating Co mments Source Name Details Category Date Date Treatment Clinician Date Tobacco Tobacco Problem Active [place] user User 1-25 da 00:[facility] Allergies, Adverse Reactions, Alerts Allergy Allergy Status Severity Reaction(s) Onset Inactive Treating Comm ents Source Name Type Date Date Clinician Penicill Propensi Active Anaphylaxis 2019-0 U nivers in ty to 4-13 ity of adverse 00:00: [place] reaction 00 Medical s Branch PENICILL DRUG Active Anaphylaxis 2019-0 Uni vers IN INGREDI 4-13 ity of 00:00: [place] 00 Medical Branch PENICILL Allergy Active Moderate [place] to da substanc [facility] NO KNOWN Drug Active Univers ALLERGIE Class ity of [facility] Social History Social Habit Start Date Stop Date Quantity Comments Source Exposure to 2022-11-23 2022-12-03 Not sure [facility] SARS-CoV-2 (event) 00:00:00 23:12:00 [facility] Branch Sex Assigned [birth year] [facility] 00:00:00 00:00:00 Medical Branch Smoking Status Start Date Stop Date Source Heavy Tobacco Smoker [place] [facility] Tobacco smoking consumption [facility] Medical unknown Branch Medications Ordered Filled Start [...] 1 dose, On Medi kirsty 10 mg Mon Branch 12/03/22 at 2330, 1 mL ketorolac Yes [id number] 10mg Take 1 Un chris 10 mg 5-15 tablet by ity of tablet 00:00: mouth [place] 00 every 6 Medical (six) Branch hours as needed for Pain (scale 4-6) or Pain (scale 7-10). acetaminoph Yes [id number] 650mg Take 1 Univers en (TYLENOL 5-15 tablet by ity of ARTHRITIS 00:00: mouth [place] PAIN) 650 00 every 8 Medical mg CR (eight) Branch tablet hours as needed for Pain. gabapentin Yes [id number] 100mg Take 1 Univers (NEURONTIN) 5-15 capsule by it y of 100 mg 00:00: mouth in [place] capsule 00 the Medical morning Branch and 1 capsule at noon and 1 capsule in the evening. predniSONE Yes [id number] Take 2 U nivers 20 mg 5-15 tablets PO ity of tablet 00:00: daily [place] 00 Medical Branch ondansetron 2019-0 Yes [id number] 4mg Take 1 Univers 4 mg 4-13 [...] 2022-12-04 04:14:00 141 mm[Hg] Univer [facility] Diastolic blood 2022-12-04 04:14:00 92 mm[Hg] Unive rsity [facility] Heart rate 2022-12-04 04:14:00 96 /min General acute hospital Body temperature 2022-12-04 04:14:00 37 [facility] Respiratory rate 2022-12-04 04:14:00 18 /min [facility] Body height 2022-12-04 04:14:00 177.8 cm General acute hospital Body weight 2022-12-04 04:14:00 74.844 kg General acute hospital BMI 2022-12-04 04:14:00 23.68 kg/m2 General acute hospital Oxygen saturation in 2022-12-04 04:14:00 100 /min [facility] Arterial blood by [facility] Pulse oximetry Branch BP Diastolic 2020-08-15 00:00:00 90 mm[Hg] [place] [facility] Height 2020-08-15 00:00:00 70 [in_i] [place] [facility] BMI (Body Mass 2020-08-15 00:00:00 21.5 kg/m2 [facility] 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) [facility] BP Systolic 2020-08-15 00:00:00 125 mm[Hg] [place] [facility] Body Weight 2020-08-15 00:00:00 2400 [oz_av] [place] [facility] Procedures Procedure Date / Time Performed Performing Clinician [facility] e NOTICE OF PRIVACY 2022-12-04 04:04:11 Doctor Unassigned, No Univ [facility] PRACTICES Name Medical Branch CONSENT/REFUSAL FOR 2022-12-04 04:02:48 [facility] Name [facility] Branch TREATMENT CHEST X-RAY 2020-08-15 00:00:00 [place] [facility] Vasectomy [place] [facility] Orthopedic Surgery [place] [facility] Plan of Care Planned Activity Planned Date Details Comments Source Diagnostic Test 2020-08-15 uric acid, serum or [place] Pending 00:00:00 plasma [code = uric [facility] acid, serum or plasma] Outre ach Program Diagnostic Test 2020-08-15 microalbumin/creatinin [place] Pending 00:00:00 e, mass ratio, urine [facility] [code = Outreach Progra m microalbumin/creatinin e, mass ratio, urine] Diagnostic Test 2020-08-15 hepatitis panel [place] Pending 00:00:00 (A+B+C), acute, serum [facility] [code = hepatitis Outreach P rogram panel (A+B+C), acute, serum] Diagnostic Test 2020-08-15 hepatitis B surface [place] Pending 00:00:00 Ab, qualitative, serum [facility] [code = hepatitis B Outreach Program surface Ab, qualitative, serum] Diagnostic Test 2020-08-15 HIV 1+2 AB + HIV 1 p24 [place] Pending 00:00:00 Ag, qualitative [facility] immunoassay, serum Outreach [facility] [code = HIV 1+2 AB + HIV 1 p24 Ag, qualitative immunoassay, serum] Diagnostic Test 2020-08-15 RPR (rapid plasma [place] Pending 00:00:00 reagin), serum [code = [facility] RPR (rapid plasma Outreach P rogram reagin), serum] Diagnostic Test 2020-08-15 CT + NG + TV, DNA, [place] 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 acid plant operator Pending 00:00:00 urine/swab [code = CT [facility] + NG + TV, DNA, Outreach Pro gram urine/swab] Diagnostic Test 2020-08-15 CMP, serum or plasma Barnes jameel Pending 00:00:00 [code = CMP, serum or [facility] plasma] Outreach Progra m Diagnostic Test 2020-08-15 lipid panel, serum [place] nitric acid plant operator Pending 00:00:00 [code = lipid panel, [facility] serum] Outreach [facility] Diagnostic Test 2020-08-15 CBC w/ auto diff [code [place] Pending 00:00:00 = CBC w/ auto diff] [facility] Outreach [facility] Diagnostic Test 2020-08-15 TSH + free T4, serum Barnes jameel Pending 00:00:00 [code = TSH + free T4, [facility] serum] Outreach [facility] Diagnostic Test 2020-08-15 HbA1c (hemoglobin [place] Pending 00:00:00 A1c), blood [code = [facility] HbA1c (hemoglobin Outreach P rogram A1c), blood] Diagnostic Test 2020-08-15 vitamin D, 25-hydroxy, [place] Pending 00:00:00 total, serum [code = [facility] vitamin D, 25-hydroxy, [facility] total, serum] Diagnostic Test 2020-08-15 rf (rheumatoid [place] Pending 00:00:00 factor), serum [code = [facility] rf (rheumatoid Outreach Prog wes factor), serum] Diagnostic Test 2020-08-15 JOSE CARLOS (antinuclear [place] Pending 00:00:00 antibodies) screen, [facility] serum [code = JOSE CARLOS Outreach P rogram (antinuclear antibodies) screen, serum] Diagnostic Test 2020-08-15 erythrocyte [place] Pending 00:00:00 sedimentation rate by [facility] westergren method Outreach P rogram [code = erythrocyte sedimentation rate by westergren method] Encounters Start End Encounter Admission Attending Care Care Encounter Source Date/Time Date/Time Type Type Clinicians Facility Department ID 2023-04-19 2023-04-19 Outpatient KAMALA RUANO [id number] [place] 15:00:00 15:00:00 AGVIN mosquera 2023-04-17 2023-04-17 Outpatient KAMALA RUANO [id number] [place] 11:00:00 11:00:00 GAVIN mosqeura 2023-03-28 2023-03-28 Outpatient KAMALA ROMERO [id number] [place] 16:00:00 16:00:00 BRAD Benjaminybol demetri 2023-03-18 2023-03-18 Outpatient CHUCKY BROWNING KAMALA JENKINS [id number] [place] 15:30:00 15:30:00 ybol demetri 2023-01-01 2023-01-01 Outpatient ZULY KAMALA JENKINS [id number] [place] 14:30:00 14:30:00 JENNIFER mosquera 2022-12-11 2022-12-11 Outpatient L_Pena [facility] [id number] [place] 00:00:00 00:00:00 0523 [facility] 2022-12-03 2022-12-04 Emergency X DIONISIO, [facility] ERT [id number] Univers 23:17:00 01:01:00 PAT medina [facility] 2022-12-03 2022-12-04 [id number] Univers 23:17:00 01:01:00 Pat HALE [id number] i ty [facility] [id number] [facility] [id number] [place] [address] Branch 2022-11-15 2022-11-15 Outpatient AMBREEN_NEGRITA [facility] [id number] [place] 00:00:00 00:00:00 SOFÍA [id number] da [facility] 2020-08-29 2020-08-29 Outpatient Obisesan_ad [facility] [id number] [place] 11:42:00 11:42:00 ekunbi [id number] da [facility] 2020-08-19 2020-08-19 Outpatient IHDE_G [facility] [id number] [place] 12:41:00 12:41:00 [id number] da [facility] 2020-08-15 2020-08-15 Outpatient SHIMEK_REGULO [facility] [id number] [place] 06:15:00 06:15:00 _ANN [id number] da [facility] 2020-08-15 2020-08-15 Adekunwanda [facility] [place] - [id number] [place] 00:00:00 00:00:00 Trever Morales da JOB FORWARDER: [address] [facility] cristobal Tam, [place] Outre [id number] h , Ph. Program 2020-08-12 2020-08-12 Outpatient KEMAR_REGULO ESQU[facility] [id number] [place] 07:10:00 07:10:00 _ANN [id number] [facility] 2020-08-09 2020-08-09 Outpatient SHIMEK_REGULO [facility] [id number] [place] 01:06:00 01:06:00 _ANN [id number] da [facility] 2020-04-12 2020-04-12 Outpatient SHIMEK_REGULO ESQU[facility] [id number] [place] 10:43:00 10:43:00 _ANN [id number] da [facility] 2019-11-02 2019-11-03 [facility] [id number] [facility] 22:00:50 00:22:00 EDU medina [facility] 2017-04-05 2017-04-05 [facility] [id number] [place] 12:35:59 12:35:59 [facility] 2017-01-10 2017-04-05 [facility] [id number] [address] [place] [address] 00:00:00 00:00:00 [facility] Results This patient has no known results.
[2023-04-25 06:47] LABS: Calcium Oxalate Crystals- Ur Few /HPF (None Seen); Specific Gravity 1.029 (1.005-1.030); Urine Bacteria None Seen /HPF (<20); Urine Bilirubin NEGATIVE (Negative); Urine Blood Negative (Negative); Urine Clarity Clear (Clear); Urine Color Light-Yellow (Yellow); Urine Glucose NEGATIVE (Negative); Urine Protein NEGATIVE (Negative); Urine RBC <5 /HPF (None Seen); Urine Urobilinogen 1+ (Normal)
[2023-04-25 06:56] LABS: Absolute Lymphocytes (CBC) 2.2 K/uL (0.7-4.9); Hematocrit 41.3 % (39.6-49.0); Lymphocytes % 26.4 % (15.3-44.8); MCV 91.1 fL (80-100); Platelets 296 thou/uL (152-406); RBC Red Blood Cell Count 4.54 M/uL (4.33-5.43)
[2023-04-25 07:17] LABS: Albumin 3.1 g/dL (3.4-5.0); Bilirubin Total 0.3 mg/dL (0.2-1.0); Potassium 3.7 mEq/L (3.5-5.1); Protein, Total 7.4 g/dL (6.4-8.2)
--- NOTE | 2023-04-25 07:47 | ER ---
Nurse's Notes [facility] Name: Prieto Baugh Age: 48 yrs Sex: Male : 1975 Arrival Date: 04/25/2023 Time: 05:37 Bed 7 Private MD: Diagnosis: Hematuria, unspecified;Constipation acute, dark urine Presentation: 04/25 06:00 Chief complaint: Patient states: bloody urine X1 week with testicular pain. Coronavirus lg3 screen: Client denies travel out of the [place] in the last 14 days. At this time, the client does not indicate any symptoms associated with coronavirus-19. Ebola Screen: No symptoms or risks identified at this time. Initial Sepsis Screen: Does the patient meet any 2 criteria? No. Patient's initial sepsis screen is negative. Does the patient have a suspected source of infection? No. Patient's initial sepsis screen is negative. Risk Assessment: Do you want to hurt yourself or someone else? Patient reports no desire to harm self or others. Onset of symptoms is unknown. 06:00 Method Of Arrival: Ambulatory lg3 06:00 Acuity: TIFFANIE 3 lg3 Triage Assessment: 06:03 General: Appears in no apparent distress. uncomfortable, Behavior is calm, cooperative. lg3 Pain: Complains of pain in groin. EENT: No deficits noted. No signs and/or symptoms were reported regarding the EENT system. Neuro: No deficits noted. Garcia Agitation-Sedation Scale (RASS): 0 - Alert and Calm Level of Consciousness is awake, alert, obeys commands, Oriented to person, place, time, situation. Cardiovascular: No deficits noted. Denies chest pain, shortness of breath, Capillary refill < 3 seconds Clubbing of nail beds is absent JVD is absent Patient's skin is warm and dry. Respiratory: No deficits noted. Airway is patent Respiratory effort is even, unlabored, Respiratory pattern is regular, symmetrical. GI: No deficits noted. No signs and/or symptoms were reported involving the gastrointestinal system. : Reports pain testicle, hematauria. Derm: No deficits noted. No signs and/or symptoms reported regarding the dermatologic system. Skin is intact, is healthy with good turgor, Skin is dry, Skin is normal, Skin temperature is warm. Musculoskeletal: No deficits noted. No signs and/or symptoms reported regarding the musculoskeletal system. Circulation, motion, and sensation intact. Range of motion: intact in all extremities. Historical: - Allergies: 06:03 PENICILLINS; lg3 - Home Meds: 06:03 None [Active]; lg3 - PMHx: 06:03 Hepatitis C; Hypertensive disorder; lg3 - PSHx: 06:03 Arm - Left; lg3 - Immunization history:: Adult Immunizations unknown, Client reports having NOT received the Covid vaccine. - Social history:: Smoking status: Patient reports the use of cigarette tobacco products, smokes one-half pack cigarettes per day, Patient uses street drugs, marijuana, Methamphetamine (Meth). - Family history:: not pertinent. Vital Signs: 06:00 BP 130 / 92; Pulse 99; Resp 17 S; Temp 97.9; Pulse Ox 100% on R/A; Weight 74.84 kg (R); lg3 Height 5 ft. 10 in. (R); 06:00 Body Mass Index 23.67 (74.84 kg, 177.8 cm) lg3 ED Course: 05:39 Patient arrived in ED. ag3 05:56 Atul Turk MD is Attending Physician. sp4 06:03 Triage completed. lg3 06:03 Arm band placed on right wrist. lg3 06:24 CT Abd/Pelvis - Without Contrast In Process Unspecified. EDMS 06:28 Cruzito Jeffrey, RN is Primary Nurse. bp 07:46 Jaylan Lal MD is Referral Physician. sp4 Administered Medications: No medications were administered Outcome: 07:47 Discharge ordered by . sp4 08:03 Patient left the ED. ph Signatures: Dispatcher [employer] EDRI Jennifer Montoya RN RN Cruzito Jeffrey RN RN Kely Buenrostro 3 Shabana Obrien RN RN [facility] Atul Turk MD MD sp4
--- NOTE | 2023-04-25 07:47 | EDPHYS ---
Physician Documentation [facility] Name: Prieto Baugh Age: 48 yrs Sex: Male : 1975 Arrival Date: 04/25/2023 Time: 05:37 Bed 7 Private MD: ED Physician Atul Turk HPI: 04/25 05:59 This 48 yrs old Male presents to ER via Unassigned with complaints of BLOOD sp4 IN URINE. 06:07 48-year-old male presents with complaint of dark urine and bloody urine for the past sp4 week and a half.. Patient states that her urine periodically clears but then becomes bloody again. He reports blood clots as well. He denied any significant pain, but reported burning with urination. Patient reported a longstanding left inguinal hernia. . Historical: - Allergies: 06:03 PENICILLINS; lg3 - Home Meds: 06:03 None [Active]; lg3 - PMHx: 06:03 Hepatitis C; Hypertensive disorder; lg3 - PSHx: 06:03 Arm - Left; lg3 - Immunization history:: Adult Immunizations unknown, Client reports having NOT received the Covid vaccine. - Social history:: Smoking status: Patient reports the use of cigarette tobacco products, smokes one-half pack cigarettes per day, Patient uses street drugs, marijuana, Methamphetamine (Meth). - Family history:: not pertinent. ROS: 06:07 Constitutional: Negative for fever, chills, and weight loss, : Positive hematuria sp4 positive burning with urination positive left inguinal hernia 06:07 All other systems are negative, Exam: 06:07 Constitutional: This is a well developed, well nourished patient who is awake, alert, sp4 and in no acute distress. Head/Face: Normocephalic, atraumatic. Eyes: Pupils equal round and reactive to light, extra-ocular motions intact. Lids and lashes normal. Conjunctiva and sclera are not injected. Cornea within normal limits. Periorbital areas with no swelling, redness, or edema. ENT: Nares patent. No nasal discharge, no septal abnormalities noted. Tympanic membranes are normal and external auditory canals are clear. Oropharynx with no redness, swelling, or masses, exudates, or evidence of obstruction, uvula midline. Mucous membranes moist. Neck: Trachea midline, no thyromegaly or masses palpated, and no cervical lymphadenopathy. Supple, full range of motion without nuchal rigidity, or vertebral point tenderness. Chest/axilla: Normal chest wall appearance and motion. Nontender with no deformity. No lesions are appreciated. Cardiovascular: Regular rate and rhythm with a normal S1 and S2. No gallops, murmurs, or rubs. Normal PMI, no JVD. No pulse deficits. Respiratory: Lungs have equal breath sounds bilaterally, clear to auscultation and percussion. No rales, rhonchi or wheezes noted. No increased work of breathing, no retractions or nasal flaring. Abdomen/GI: Soft, non-tender, with normal bowel sounds. No distension or tympany. No guarding or rebound. No evidence of tenderness throughout. Back: No spinal tenderness. No costovertebral tenderness. Male : Normal genitalia with no discharge or lesions. Circumcised male, small left inguinal hernia, no rashes, overall normal exam Skin: Warm, dry with normal turgor. Normal color with no rashes, no lesions, and no evidence of cellulitis. MS/ Extremity: Pulses equal, no cyanosis. Neurovascular intact. Full, normal range of motion. Neuro: Awake and alert, GCS 15, oriented to person, place, time, and situation. Cranial nerves II-XII grossly intact. Motor strength 5/5 in all extremities. Sensory grossly intact. Psych: Awake, alert, with orientation to person, place and time. Behavior, mood, and affect are within normal limits Vital Signs: 06:00 BP 130 / 92; Pulse 99; Resp 17 S; Temp 97.9; Pulse Ox 100% on R/A; Weight 74.84 kg (R); lg3 Height 5 ft. 10 in. (R); 06:00 Body Mass Index 23.67 (74.84 kg, 177.8 cm) lg3 MDM: 05:57 Patient medically screened. sp4 07:42 Data reviewed: vital signs, nurses notes, old medical records, lab test result(s), sp4 radiologic studies, CT scan. ED course: CT - FINDINGS: Lung Bases minimal bilateral basilar dependent atelectasis.: The visualized lung bases are clear. Bones: Mild endplate spondylosis, disc height narrowing, and facet arthropathy, most severe at L5/S1. Mild osteoarthritic change of the hips. Abdomen: Liver: The liver has normal size and density. Gallbladder: No calcified gallstones. The gallbladder is not well-distended. Spleen, Pancreas, and Adrenal Glands: The spleen, pancreas, and adrenal glands are unremarkable. Kidneys: The kidneys have normal size without evidence of hydronephrosis. No obstructing ureteral calculi. Vasculature: The aorta and IVC have normal caliber and position. Stomach: The stomach and duodenum have normal course. Other: No free intraperitoneal air. No free fluid or lymphadenopathy. Small fat-containing umbilical hernia. Pelvis: Bladder: Wall thickening of the urinary bladder. Bowel: No dilated loops of large or small bowel. Large amount stool. Appendix: Normal appendix. Pelvis: Prostate is not enlarged. IMPRESSION: 1. Wall thickening of the urinary bladder. This could be seen with cystitis. 2. Large amount of stool.. 07:44 Differential Diagnosis altered mental status, sepsis, flu, renal failure . sp4 Consideration of Admission/Observation Escalation of care including admission/observation considered. ED course: Patient has unremarkable work-up today. The urine is clean. Stable for discharge home. Will advise p.o. hydration. . 04/25 05:56 Order name: Urinalysis W/Microscopic; Complete Time: 07:41 sp4 04/25 06:07 Order name: CBC with Diff; Complete Time: 07:41 sp4 04/25 06:07 Order name: CMP; Complete Time: 07:41 sp4 04/25 06:07 Order name: Lipase; Complete Time: 07:41 sp4 04/25 06:07 Order name: CT Abd/Pelvis - Without Contrast sp4 04/25 06:07 Order name: Labs collected and sent; Complete Time: 06:44 sp4 Administered Medications: No medications were administered Disposition Summary: 04/25/23 07:47 Discharge Ordered Problem: new sp4 Symptoms: have improved sp4 Condition: Stable sp4 Diagnosis - Hematuria, unspecified sp4 - Constipation acute, dark urine sp4 Followup: sp4 - With: Jaylan Lal MD - When: 10 - 14 days - Reason: Recheck today's complaints Discharge Instructions: - Discharge Summary Sheet sp4 - Hematuria, Adult sp4 Forms: - Patient Portal Instructions sp4 Signatures: Dispatcher [employer] EDNV Shabana Obrien RN RN lg3 Rosalee Atul, MD sp4
--- NOTE | 2023-04-25 08:53 | RAD REPORT ---
EXAM DESCRIPTION: CT - Abdomen Pelvis Wo Contrast - 04/25/2023 6:49 am CLINICAL HISTORY: HEMATURIA COMPARISON: None Available. TECHNIQUE: CT of the abdomen and pelvis without IV contrast. Evaluation of the solid organs and vasc ulature is suboptimal due to lack of IV contrast. This exam was performed according to our department al dose-optimization program, which includes automated exposure control, adjustment of the mA and/or kV according to patient size and/or use of iterative reconstruction technique. FINDINGS: Lung Bases minimal bilateral basilar dependent atelectasis.: The visualized lung bases a re clear. Bones: Mild endplate spondylosis, disc height narrowing, and facet arthropathy, most severe at L5/S1. Mild osteoarthritic change of the hips. Abdomen: Liver: The liver has normal size and density. Gallbladder: No calcified gallstones. The gallbladder is not well-distended. Spleen, Pancreas, and Adrenal Glands: The spleen, pancreas, and adrenal glands are unremarkable. Kidneys: The kidneys have normal size without evidence of hydronephrosis. No obstructing ureteral kirsty culi. Vasculature: The aorta and IVC have normal caliber and position. Stomach: The stomach and duodenum have normal course. Other: No free intraperitoneal air. No free fluid or lymphadenopathy. Small fat-containing umbili kirsty hernia. Pelvis: Bladder: Wall thickening of the urinary bladder. Bowel: No dilated loops of large or small bowel. Large amount stool. Appendix: Normal appendix. Pelvis: Prostate is not enlarged. IMPRESSION: 1. Wall thickening of the urinary bladder. This could be seen with cystitis. 2. Large amount of stool. Electronically signed by: Denny Ferguson 04/25/2023 6:38 AM CDT Due to temporary technical issues with the PACS/Fluency reporting system, reports are being signed by the in house radiologists without review as a courtesy to insure prompt reporting. The interpreting radiologist is fully responsible for the content of the report.
== END 2023-04-25 08:03 | disposition home or self-care (01) ==
LOC: ER 05:37
DX: R31.9 Hematuria, unspecified (principal); K59.00 Constipation, unspecified; R82.998 Other abnormal findings in urine; R30.0 Dysuria; I10 Essential (primary) hypertension; F17.210 Nicotine dependence, cigarettes, uncomplicated; Z88.0 Allergy status to penicillin
CPT/HCPCS: 36415; 74176; 80053; 81001; 83690; 85025; 99281